=== PATIENT | male | born 2000 | race Caucasian/White ===

== ENCOUNTER 2023-12-30 13:19 | Emergency (ER) | payer OTHER, SELFPAY ==
[2023-12-30] VITALS (9 sets, daily range): BP systolic 126–140; BP diastolic 78–91; PULSE 73–88; RESP 17–23; TEMP 36.6; O2SAT 98–100
[2023-12-30 14:13] LABS: Base Excess VBG -1.4 mmol/L (0-4); HCO3 VBG 24 mmol/L (24-28); Oxygen Saturation VBG 31 % (70-75); PCO2 VBG 44.1 mmHg (45-50); PO2 VBG 21 mmHg (35-45); Total CO2 VBG 24 mmol/L (24-29); pH VBG 7.35 (7.33-7.43)
[2023-12-30 14:19] LABS: Hematocrit 43.6 % (41-53); Hemoglobin 15.4 g/dL (13.5-17.5); Mean Corpuscular HGB Conc 35.4 % (30-36); Mean Corpuscular Hemoglobin 29.9 PG (26-34); Mean Corpuscular Volume 84.5 fL (80-100); Platelet Count 240 X10^3/uL (150-400); Red Blood Cell Count 5.15 X10^6/uL (4.5-5.9); Red Cell Distribution Width 12.2 % (11.6-14.8); White Blood Cell Count 4.6 X10^3/uL (4.5-11.0)
[2023-12-30 14:29] LABS: Alanine Aminotransferase 27 IU/L (<50); Albumin 4.2 g/dL (3.5-5.0); Albumin Globulin Ratio 1.6 (1.0-2.8); Alkaline Phosphatase 99 U/L (38-126); Aspartate Aminotransferase 27 IU/L (17-59); BUN Creatinine Ratio 19.7 (6-22); Bilirubin Total 0.8 mg/dL (0.2-1.3); Blood Urea Nitrogen 13 mg/dL (9-20); Calcium 9.1 mg/dL (8.4-10.2); Carbon Dioxide 25 mmol/L (22-32); Chloride 98 mmol/L (98-107); Estimated Glomerular Filt Rate > 60 mL/min (>60); Globulin 2.7 g/dL (1.7-4.1); Potassium 4.6 mmol/L (3.4-5.1); Sodium 130 mmol/L (137-145); Total Protein 6.9 g/dL (6.3-8.2)
[2023-12-30] MEDS: SODIUM CHLORIDE 0.9% 1,000 ML 1000 ML IV (14:32)
[2023-12-30 14:36] LABS: Ketones (Beta-Hydroxybutyrate) 0.67 mmol/L (<0.27)
[2023-12-30 14:37] LABS: HEMOLYSIS 23 (0-50)
[2023-12-30 14:38] LABS: Glucose 646 mg/dL (70-100)
[2023-12-30 14:39] LABS: Urine Volume 10mL (spun)
[2023-12-30 14:41] LABS: Bacteria Urine None Seen; Culture Indicated Urine Cult Not Indicated; RBC Urine None Seen (0-5/HPF); Squamous Epithelial Cell Urine None Seen (0-5/HPF); WBC Urine None Seen (0-5/HPF)
[2023-12-30 14:47] LABS: Neutrophils Absolute Manual 2852 /uL (3000-5900); Platelet Estimate Adequate on smear; RBC Morphology Normal Morphology; Total Cells Counted 100
[2023-12-30 16:44] LABS: Hemoglobin A1C% w Est Avg Glu 13.9 % (4.0-6.0)
--- NOTE | 2023-12-30 17:13 | ED_ITS ---
HPI - General Adult General Chief complaint: Diabetic Problem Stated complaint: saw PCP- was told he has high glucose Time Seen by Provider: 12/30/23 16:07 Source: patient Mode of arrival: Ambulatory History of Present Illness HPI narrative: 23-year-old male with no reported medical issues who presents for elevated glucose from the [employer]. Patient states he was at PT and had an episode of incontinence which was unexpected. He has never had this before. Had a glucose which was noted to be elevated as high. 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 Did not find that unexpected. He denies any fevers or chills. No cold cough congestion symptoms. No chest pain, no shortness of breath. No abdominal back or flank pain. No nausea or vomiting. Denies any issues with bowel movements. No new swelling in extremities. Does not have any known medical issues, states no prior surgeries. No known drug allergies. Family history includes multiple family members with diabetes but states he only has 1 living family member who is in their 60s. He is on sure if anyone had young age onset diabetes in his family. Related Data Previous Rx's Medication Instructions Recorded metformin 500 mg tablet 500 mg PO BID #20 tabs 12/30/23 Allergies Allergy/AdvReac Type Severity Reaction Status Date / Time No Known Drug Allergies Allergy Verified 12/30/23 13:32 Review of Systems Review of Systems ROS Unobtainable: All systems reviewed & are unremarkable except as noted in HPI and below Patient History Social History Smoking Status: Never smoker Smoking Status: Never smoker alcohol intake frequency: holidays/special occasions only Substance Use Type: does not use Exam Narrative Exam Narrative: GENERAL: Alert and oriented x three, thin male in mild distress. HEENT: Head normocephalic, atraumatic, EOMI, pupils reactive, face symmetric, moist mucous membranes NECK: Supple, full range of motion CARDIOVASCULAR: Regular rate and rhythm without murmurs, rubs or gallops. RESPIRATORY: Breath sounds equal bilaterally, no wheezes rales or rhonchi. ABDOMEN: Soft, nontender. Normoactive bowel sounds all 4 quadrants. No guarding or rebound, rigidity, no mass : No CVA tenderness EXTREMITIES: Normal range of motion, no clubbing or edema. Neurovascularly intact NEUROLOGICAL: Cranial nerves II through XII grossly intact. Moving all extremities. Normal gait. SKIN: Warm, dry, no petechiae, no rashes or lesions. Initial Vital Signs Initial Vital Signs: Vital Signs Temperature 97.8 F 12/30/23 13:32 Pulse Rate 88 12/30/23 13:32 Respiratory Rate 18 12/30/23 13:32 Blood Pressure 134/78 12/30/23 13:32 Pulse Oximetry 98 12/30/23 13:32 Oxygen Delivery Method Room Air 12/30/23 13:32 Course Orders Ordered: ED Orders 12/30/23 13:50 VBG [Venous Blood Gas] STAT 12/30/23 14:00 CMP [Comprehensive Metabolic Panel] Stat Complete Blood Count MAN DIFF Stat Hemoglobin A1C% w Est Avg Glu Stat Ketones (Beta-Hydroxybutyrate) Stat 12/30/23 14:10 Venous Blood Gas Routine 12/30/23 14:30 Urine Microscopic Stat Discontinued Medications Sodium Chloride (Normal Saline 0.9%) 1,000 mls @ 1,000 mls/hr IV BOLUS ONE Stop: 12/30/23 14:50 Last Infusion: 12/30/23 15:05 Dose: Infused Documented By: Admin: 12/30/23 14:32 Dose: 1,000 mls/hr Documented By: MELO Insulin Human Regular (Insulin Regular 100 Unit/Ml 3 Ml Vial) 5 unit SUBCUT NOW ONE Stop: 12/30/23 16:09 Last Admin: 12/30/23 16:43 Dose: Not Given Documented By: LILIA Metformin HCl (Metformin Hcl 500 Mg Tablet) 500 mg PO NOW ONE Stop: 12/30/23 17:44 Vital Signs Vital signs: Vital Signs - 8 hr 12/30/23 13:32 12/30/23 15:20 12/30/23 15:21 Temperature 97.8 F Pulse Rate 88 79 Respiratory Rate 18 Blood Pressure 134/78 140/88 Pulse Oximetry 98 100 Oxygen Delivery Method Room Air 12/30/23 15:21 12/30/23 15:30 12/30/23 15:30 Temperature Pulse Rate 76 81 Respiratory Rate 17 Blood Pressure 140/91 H Pulse Oximetry 100 98 Oxygen Delivery Method Room Air 12/30/23 16:01 12/30/23 16:03 12/30/23 16:03 Temperature Pulse Rate 74 Respiratory Rate 18 Blood Pressure 131/86 Pulse Oximetry 100 100 Oxygen Delivery Method Room Air 12/30/23 16:30 12/30/23 16:30 12/30/23 17:00 Temperature Pulse Rate 80 Respiratory Rate 23 Blood Pressure 139/80 126/81 Pulse Oximetry 98 Oxygen Delivery Method 12/30/23 17:00 12/30/23 17:30 12/30/23 17:30 Temperature Pulse Rate 73 76 Respiratory Rate 17 17 Blood Pressure 127/80 Pulse Oximetry 99 98 Oxygen Delivery Method Room Air Medical Decision Making Lab Data 12/30/23 14:00 12/30/23 14:00 Labs: Lab Results 12/30/23 12/30/23 12/30/23 Range/Units 14:00 14:10 14:30 WBC 4.6 (4.5-11.0) X10^3/uL RBC 5.15 (4.5-5.9) X10^6/uL Hgb 15.4 (13.5-17.5) g/dL Hct 43.6 (41-53) % MCV 84.5 (80-100) fL MCH 29.9 (26-34) PG MCHC 35.4 (30-36) % RDW 12.2 (11.6-14.8) % Plt Count 240 (150-400) X10^3/uL Total Counted 100 Seg Neutrophils % 62.0 (38-70) % Lymphocytes % (Manual) 31.0 (25-45) % Monocytes % (Manual) 5.0 (2-11) % Eosinophils % (Manual) 2.0 (2-4) % Neutrophils # (Manual) 2852 L (9448-3068) /uL Platelet Estimate Adequate on smear RBC Morphology Normal morphology VBG pH 7.35 (7.33-7.43) VBG pCO2 44.1 L (45-50) mmHg VBG pO2 21 L (35-45) mmHg VBG HCO3 24 (24-28) mmol/L VBG Total CO2 24 (24-29) mmol/L VBG O2 Saturation 31 L (70-75) % VBG Base Excess -1.4 L (0-4) mmol/L FiO2 % 21.0 % % Sodium 130 L (137-145) mmol/L Potassium 4.6 (3.4-5.1) mmol/L Chloride 98 (98-107) mmol/L Carbon Dioxide 25 (22-32) mmol/L BUN 13 (9-20) mg/dL Creatinine 0.66 (0.66-1.25) mg/dL Estimated GFR > 60 (>60) mL/min BUN/Creatinine Ratio 19.7 (6-22) Glucose 646 H* (70-100) mg/dL Hemoglobin A1c 13.9 H (4.0-6.0) % Calcium 9.1 (8.4-10.2) mg/dL Total Bilirubin 0.8 (0.2-1.3) mg/dL AST 27 (17-59) IU/L ALT 27 (<50) IU/L Alkaline Phosphatase 99 (38-126) U/L Total Protein 6.9 (6.3-8.2) g/dL Albumin 4.2 (3.5-5.0) g/dL Globulin 2.7 (1.7-4.1) g/dL Albumin/Globulin Ratio 1.6 (1.0-2.8) Urine RBC None seen (0-5/HPF) Urine WBC None seen (0-5/HPF) Ur Squamous Epith Cells None seen (0-5/HPF) Urine Bacteria None seen (None) Ur Culture Indicated? Cult not indicated Vol Urine Centrifuged 10ml (spun) Ketones 0.67 H (<0.27) mmol/L Point of Care Testing Glucose POC 404 Urine Dip Bedside Urine Glucose 1000 mg/dl Bedside Urine Bilirubin - Negative Bedside Urine Ketone ++ 40 Urine Specific [place] 1.005 Bedside Urine Occult Blood - Negative Bedside Urine pH 6.0 Bedside Urine Protein - Negative Bedside Urine Urobilinogen - Negative Bedside Urine Nitrite - Negative Bedside Urine Leukocytes - Negative Esterase Point of care testing: Point of Care Testing Glucose POC 404 Urine Dip Bedside Urine Glucose 1000 mg/dl Bedside Urine Bilirubin - Negative Bedside Urine Ketone ++ 40 Urine Specific [place] 1.005 Bedside Urine Occult Blood - Negative Bedside Urine pH 6.0 Bedside Urine Protein - Negative Bedside Urine Urobilinogen - Negative Bedside Urine Nitrite - Negative Bedside Urine Leukocytes - Negative Esterase MDM Narrative Medical decision making narrative: 23-year-old male point of care glucose is high on our monitor. Labs show glucose of 646, sodium is 130 when corrected is 139, anion gap 7. Patient's electrolytes, bicarb, creatinine are all normal LFTs are negative. CBC is normal at 4 neutrophil count of 2852 on manual. CBC shows a pH of 7.35. Positive for ketones. Point of care urine shows shows a 1000 glucose, positive for ketones, negative for blood negative for protein negative for nitrates leukocyte esterase. Patient's glucose improved after 1 L from 445 and then 04/07/2003 from 646. Patient does not have any signs of DKA felt appropriate for discharge home with follow up outpatient was started on oral antihyperglycemic but will potentially need insulin. Patient to call tomorrow to set up follow up with sent prescription medications, discussed return precautions. Also send a copy of all patient's labs with him to present to his primary care. Discharge Plan Departure Patient Disposition: Home Clinical Impression: Diabetes mellitus Instructions: DI for Diabetes Type 1 -- Adult Activity Restrictions/Additional Instructions: Please call tomorrow to set up follow up with primary care in the [facility]. It does not appear that you have diabetes. A copy of your labs is included please share these with your physician. Your glucose was 646 upon arrival it improved to the 400 range with just fluids you did receive a dose of oral medication for your glucose as well. You has been started on an oral medication for diabetes, this is a low dose you may require higher doses or completely different medications including insulin. Your physician while adjust these as needed. Take your next dose tomorrow morning. This medication can cause GI upset so you may have some nausea or loose stools. A prescription was sent to the [facility] pharmacy in [place]. Please return if you are having severe headaches, new chest pain or abdominal pain, persistent nausea or vomiting, increasing frequency or urinary changes, lightheadedness or passing out, confusion or alterations in mental status or other new or concerning changes. Prescriptions: New metformin 500 mg tablet 500 mg PO BID Qty: 20 0RF Stand Alone Forms: Patient Portal/API/Survey
[2023-12-30] MEDS: METFORMIN HCL 500 MG TABLET PO (17:53)
== END 2023-12-30 18:06 | disposition home or self-care (01) ==
PROVIDERS: Emergency Provider Emergency Medicine
DX: E10.65 Type 1 diabetes mellitus with hyperglycemia (principal)
CPT/HCPCS: 36415; 80053; 81003; 81015; 82009; 82805; 82962; 83036; 85025; 96360; 99284